=== PATIENT | female | born 1975 | race Caucasian/White ===

== ENCOUNTER → 2017-06-20 | Outpatient (REF) | payer OTHER ==
[~2017-06-20] MED LIST: MELA3TAB49 PO
== END ==
LOC: M SFHCLERA 18:59
PROVIDERS: ATTEND Physician Assistant
DX: R10.9 Unspecified abdominal pain (principal)

== ENCOUNTER 2017-06-22 09:19 | Emergency (ER) | payer OTHER ==
[~2017-06-22] VITALS: Ht 162.6 cm; Wt 84.1 kg
[2017-06-22] MEDS ORDERED: MELA3TAB49 PO (09:25)
[2017-06-22 09:50] LABS: CONTROL LINE UCG INT CTR LINE PRESENT
[2017-06-22 10:02] LABS: BASO % 0.3 % (0.0-1.0); EOS % 0.8 % (0.0-3.0); LARGE UNSTAINED CELL # 0.2 K/mm3 (0.0-0.4); LARGE UNSTAINED CELL % 4.3 % (0.0-4.0); LYMPH # 1.1 K/mm3 (1.5-4.5); LYMPH % 22.8 % (24.0-44.0); MEAN CORPUSCULAR HEMOGLOBIN 27.4 pg (27.0-33.0); MEAN CORPUSCULAR HGB CONC 33.3 g/dl (32.0-36.5); MEAN CORPUSCULAR VOLUME 82.3 fl (80.0-96.0); MONO # 0.3 K/mm3 (0.0-0.8); MONO % 6.9 % (0.0-5.0); NEUTROPHILS # 3.2 K/mm3 (1.8-7.7); NEUTROPHILS % 64.8 % (36.0-66.0); PLATELET COUNT, AUTOMATED 250 k/mm3 (150-450); WHITE BLOOD COUNT 4.9 K/mm3 (4.0-10.0)
[2017-06-22 10:21] LABS: ANION GAP 8 MEQ/L (8-16); BLOOD UREA NITROGEN 13 MG/DL (7-18); CALCIUM LEVEL 8.5 MG/DL (8.5-10.1); CARBON DIOXIDE LEVEL 26 MEQ/L (21-32); CHLORIDE LEVEL 108 MEQ/L (98-107); CREATININE FOR GFR 0.76 MG/DL (0.55-1.02); GLOMERULAR FILTRATION RATE > 60.0 (>58); GLUCOSE, FASTING 68 MG/DL (70-105); POTASSIUM SERUM 3.6 MEQ/L (3.5-5.1); SODIUM LEVEL 142 MEQ/L (136-145)
[2017-06-22] MEDS ORDERED: GASTROGRAFIN SOLUTION 30ML (Q9963) PO ONE (11:15)
[2017-06-22] MEDS ORDERED: GASTROGRAFIN SOLUTION 30ML PO ONE (11:45)
[2017-06-22] MEDS ORDERED: ISOVUE-370 76% 100ML VIAL (Q9967) As Ordered ONE (12:34)
[2017-06-22 13:17] VITALS: BP 110/67
--- NOTE | 2017-06-23 13:02 | REP ---
CT abdomen pelvis with IV and oral contrast: History: Left flank pain. Question diverticular disease. CT contrast dose: 100 mL of Isovue [address] study. 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 The lung bases are clear. The liver and the spleen are normal in size, homogeneous in texture. No adrenal lesion is seen on either side. There is some nodular increased density in the dependent portion the gallbladder consistent with cholelithiasis. The pancreas is unremarkable. The kidneys enhance symmetrically. There is a small sliding-type hiatal hernia. There is mild right-sided hydronephrosis and hydroureter. No urinary tract calculus is seen. No ovarian mass lesion is observed. Urinary bladder and uterus are unremarkable. No left-sided hydronephrosis is seen. No abdominal wall defect seen. Small and large intestinal bowel loops are normal in appearance. Impression: 1. Cholelithiasis. 2. Mild right hydronephrosis and hydroureter. No calculus seen. No obstructive lesion seen. 3. Status post gastric bypass. Small sliding-type hiatal hernia. Signed by Jacques White MD 06/23/2017 03:01 P
--- NOTE | 2017-06-24 13:38 | ED PDOC ---
Post-Departure Follow-Up radiology report faxed [facility] Geraldine Khan MD Jun 24, 2017 13:38
== END 2017-06-22 13:31 | disposition home or self-care (01) ==
LOC: M ED 09:19
DX: K80.20 Calculus of gallbladder without cholecystitis without obstruction (principal); K44.9 Diaphragmatic hernia without obstruction or gangrene; N13.30 Unspecified hydronephrosis; K59.00 Constipation, unspecified; Z87.442 Personal history of urinary calculi; Z79.899 Other long term (current) drug therapy
CPT/HCPCS: 36415; 74177; 80048; 81001; 84703; 85025; 87086; 99283; Q9963; Q9967

== ENCOUNTER → 2017-07-01 | Outpatient (CLI) | payer OTHER ==
--- NOTE | 2017-07-15 12:53 | REPMRS ---
Patient History The patient states she has not had a clinical breast exam in over a year. No known family history of cancer. Digital Mammo Screening Bilat: July 01, 2017 - Exam #: [id number] Bilateral CC and MLO view(s) were taken. Technologist: Ary Shen, Technologist Prior study comparison: June 20, 2015, digital bilateral screening mammo, performed at [facility]. FINDINGS: There are scattered fibroglandular densities. There has been no change in the appearance of the mammogram from the prior studies. There is a mild amount of scattered fibroglandular density which is fairly symmetric. There is no interval development of dominant mass, architectural distortion, or clustered microcalcification suggestive of malignancy. ASSESSMENT: BI-RADS/ACR category 1 mammogram. Negative. Recommendation Routine screening mammogram in 1 year (for women over age 40). This mammogram was interpreted with the aid of an FDA-approved computer-aided dectection system. Electronically Signed By: Leonidas White MD 07/15/17 [id number]
== END ==
LOC: M RAD 10:52
PROVIDERS: ATTEND Internal Medicine
DX: Z12.31 Encounter for screening mammogram for malignant neoplasm of breast (principal)